=== PATIENT | male | born 1995 | race Caucasian/White ===

== ENCOUNTER 2017-06-26 17:44 | Emergency (ER) | payer OTHER ==
[~2017-06-26] VITALS: Ht 170.2 cm; Wt 63.5 kg
[2017-06-26 17:50] VITALS: BP 126/78
--- NOTE | 2017-06-26 18:23 | ED HAND/WRIST INJURY COMPLAINT ---
History of Present Illness General Chief Complaint: Laceration Procedure Stated Complaint: L PINKY LAC, WORK INJURY Source: patient Exam Limitations: no limitations Vital Signs & Intake/Output Vital Signs & Intake/Output Vital Signs Date Time Temp Pulse Resp B/P B/P Pulse O2 O2 Flow FiO2 Mean Ox Delivery Rate 06/26 191 97.4 06/26 1750 100.1 89 18 126/78 99 Room Air ED Intake and Output 06/27 0000 06/26 1200 Intake Total Output Total Balance Patient 140 lb Weight Weight Estimated Measurement Method Allergies Coded Allergies: No Known Allergies (06/26/17) Reconcile Medications Aspirin (Ecotrin*) 81 MG TABLET. 1 TAB PO DAILY HEART (Reported) Triage Note: PT TO ER C/C LAC/AVULSION TO TIP OF LEFT 5TH FINGER AT WORK. OCCURED AT 9 AM TODAY. TAKES 81 MG ASA DAILY. DRESSING IN PLACE Triage Nurses Notes Reviewed? yes Occurred: just prior to arrival Timing: no prior history Injury Environment: work Severity: moderate Pain/Injury Location: Left: 5th finger. Context: laceration Method of Injury: laceration No Modifying Factors: none HPI: Patient is a 21-year-old male presenting to the emergency department with chief complaint of laceration to left fifth finger that happened just prior to arrival. Patient reports that he was at work and was cut by a crowbar. Up-to- date with tetanus immunization. Pain is currently mild to moderate. Worse with range of motion and palpation. Has not taken anything prior to arrival her pain. Denies numbness or tingling. Denies any other injuries. (Lori Lisa) Past History Travel History Traveled to [place] past 21 day No Medical History Any Pertinent Medical History? see below for history Cardiovascular: CONGENTIAL HEART DISEASE Surgical History Surgical History: non-contributory Psychosocial History What is your primary language Indonesian Tobacco Use: Never used Family History Hx Contributory? No (Lori Lisa) Review of Systems Review of Systems Constitutional: Reports: no symptoms. Comments Review of systems: See HPI, All other systems negative. Constitutional, no chills fever or weight loss HEENT: No visual changes no sore throat no congestion Cardiovascular: No chest pain ,palpitation Skin, no jaundice Respiratory: No dyspnea cough sputum GI: No nausea no vomiting Muscle skeletal: no back pain, no neck pain, Neurologic: No numbness Psych: No stress anxiety Immunology: Up-to-date with immunizations (Lori Lisa) Physical Exam Physical Exam General Appearance: well developed/nourished, no apparent distress, alert, awake , comfortable Hand Left: normal range of motion Hand Right: normal inspection, normal range of motion Comments: Well-developed well-nourished person in no acute distress HEENT: Atraumatic, normocephalic Neck: Normal inspection Respiratory: No respiratory distress. Extremity: No edema, full range of motion of all digits on the left hand without difficulty or pain. Radial pulses are 2+ bilaterally. Cap refill intact in left upper extremity Neuro: Alert oriented x3, motor sensory normal, Skin: Flap-like laceration approximately 1 cm in size, subcutaneous, noted at the distal tip of the left fifth digit on the medial aspect. Nontender palpation. No surrounding erythema or edema. No foreign bodies visualized on inspection. Psych: Mood and affect is normal, memory and judgment is normal. (Lori Lisa) Progress Differential Diagnosis: LACERATION, ABRASION, SKIN AVULSION Plan of Care: Current Medications Sig/Bharath Start time Last Medication Dose Stop Time Status Admin Lidocaine 20 ML ONCE ONE 06/26 1844 UNVr (Lidocaine 1%) 06/26 1845 (Lori Lisa) Departure Departure Time of Disposition: 1910 Disposition: HOME OR SELF CARE Condition: Stable Clinical Impression Primary Impression: Laceration Referrals: José Payne OD (PCP/Family) Additional Instructions: Return to the emergency department in 7-10 days for suture removal. Keep clean and dry. Take [id number] Motrin or Tylenol as directed. Return sooner if he develops any increased pain, redness or fevers or concerns. Departure Forms: Customer Survey General Discharge Information Industrial Accident Report (Lori Lisa) PA/[employer] APPRAISER Co-Sign Statement Statement: ED Attending supervision documentation- [] I saw and evaluated the patient. I have also reviewed all the pertinent lab results and diagnostic results. I agree with the findings and the plan of care as documented in the PA's/[employer]ERSON[employer] APPRAISER's documentation. [X] I have reviewed the ED Record and agree with the PA's/[employer]ERSON[employer] APPRAISER's documentation. [] Additions or exceptions (if any) to the PAs/[employer] PERSON[employer] PROPERTY APPRAISER's note and plan are summarized below: [] (Gerson VASQUEZ,Antoine Peres) Procedures Laceration/Wound Repair Laceration/Wound Repair: Wound Location: upper extremity Wound's Depth, Shape: linear, subcutaneous Wound Length (cm): 1 Wound Explored: clean, no foreign body removed Irrigated w/ Saline (ccs): 250 Betadine Prep? Yes Anesthesia: 1% lidocaine Volume Anesthetic (ccs): 4 Wound Debrided: minimal Wound Repaired With: sutures Suture Size/Type: 5:0, nylon Number of Sutures: 4 Layer Closure? No Tetanus Status: up to date Progress: Tolerated procedure well. (Radha HUBER,Lori)
[2017-06-26] MEDS ORDERED: ASPIRIN EC81 M1 PO (19:07)
== END 2017-06-26 19:19 ==
LOC: ERH 17:44
DX: S61.217A Laceration without foreign body of left little finger without damage to nail, initial encounter (principal); W27.8XXA Contact with other nonpowered hand tool, initial encounter; Y92.9 Unspecified place or not applicable; Y93.9 Activity, unspecified